=== PATIENT | female | born 1945 | race Caucasian/White ===

== ENCOUNTER 2019-01-10 10:11 | Inpatient (IN) ==
[2019-01-10] MEDS ORDERED: HumuLIN R SUBCUT PRN (12:44)
--- NOTE | 2019-01-10 12:53 | DR.H&P ---
H&P - History & Physical for Day of: H&P Date: 01/10/19 - Chief Complaint Chief Complaint: severe lower extremity swelling, sob, weakness, chills - History of Present Illness History of Present Illness: 73 WF DIRECT ADMIT FORM DR MANN OFFICE WITH CO SEVERE SWELLING TO BILATERAL LOWER EXTREMITIES UP IN TO HER THIGHS AND ABDOMEN. PT HAS NO KNOWN CAD OR CHF. PT HAS HX OF AFIB WITH CONTROLLED RATE, ON CARDIZEM AND ELIQUIS FOR YEARS. PT HAD DM, A1C THIS PAST WEEK ~7. PT STATES APPROX OCTOBER SHE HAS HAD STEADY WEIGHT GAIN, SEVERE EDEMA AND INCREASED SOB. PT WAS SEEN EARLIER IN THE WEEK AND REFUSED ADMISSION AT THAT TIME, HER LASIX WAS INCREASED WITH PT INSTRUCTIONS FOR STRICT I & OS AND ONE DAY FOLLOW UP. PT CO OF CHILLS THIS AM, FEELING MUCH WORSE. PT HAS PMH OF AFIB, DM, HTN AND ANXIETY. PT ADMITTED FOR TREATMENT AND EVALUATION OF ACUTE ILLNESS. - Past Medical History Past Medical History: Anxiety, Arthritis, Diabetes, Hypertension Additional Medical History: AFIB - Social History Does patient currently use any type of tobacco product: No Have you used tobacco products in the last 12 months: No Type of Tobacco Use: None Does any household member use tobacco: No Alcohol Use: None Drug Use: None - Medications Home Medications: UNOBTAINABLE Allergy (Unverified 01/01/13 11:38) - Review of Systems Constitutional: Chills, Weakness Eyes: No Symptoms Reported ENT: No Symptoms Reported Respiratory: Shortness of Breath Cardiovascular: Palpitations, Edema Gastrointestinal: No Symptoms Reported Genitourinary: No Symptoms Reported Musculoskeletal: Leg Pain Skin: Rash Neurological: Weakness Oriented: Normal Eyes: Normal Nose: Normal Throat: Normal Respiratory: RLL Diminished, LLL Diminished Cardiovascular: Tachycardia, Irregular, Edema Auscultation: Bowel Sounds: Normal Palpation: Other (DIFFUSE ABDOMINAL DISTENTION) Tenderness: Normal Skin: Red, Tender, Hot (BILATERAL LOWER EXTREMITIES) Musculoskeletal: Right, Left, Leg, Back:Lumbar Psychiatric: Anxiety Affect: Anxious Speech Pattern: Clear, Appropriate - Assessment/Plan (1) SOB (shortness of breath) Status: Acute Plan: ADMIT ICU,. SERIAL CE AND EKG. CHEST XRAY ON ADMISSION. ADMISSION LABS CBC CMP UA. BP AND LIPID CONTROL, RESUME ELIQUIS. SHEPHERD CATH WITH STRICT I & OS. SUPPLEMENTAL O2. ECHO, BS AND BP CONTROL (2) Atrial fibrillation Status: Acute (3) Swelling of lower limb Status: Acute (4) Hypertension Status: Acute (5) lobsterman current use of anticoagulant Status: Acute (6) Weakness Status: Acute - Allergies Allergies/Adverse Reactions: Allergies Allergy/AdvReac Type Severity Reaction Status Date / Time UNOBTAINABLE Allergy Unverified 01/01/13 11:38
--- NOTE | 2019-01-10 13:29 | RAD ---
History: Atrial fib and CHF Study: Portable AP chest Comparison: None Findings: The heart size is prominent. The lungs are grossly clear. There is minimal vascular congestion. No effusion is suggested. There is no focal lung consolidation. Impression: Minimal vascular congestion Reported By:
[2019-01-10 13:47] LABS: BASOPHILS % (AUTO) 0.5 % (0.2-1.0); EOSINOPHILS % (AUTO) 0.4 % (0.9-2.9); HEMATOCRIT 35.4 % (36.0-47.0); HEMOGLOBIN 11.8 g/dL (12.0-16.0); LYMPHOCYTES # (AUTO) 0.8 X10^3/uL (1.3-2.9); LYMPHOCYTES % (AUTO) 11.5 % (21.0-51.0); MEAN CORPUSCULAR HEMOGLOBIN 30.7 pg (27.0-34.0); MEAN CORPUSCULAR HGB CONC 33.4 g/dL (33.0-35.0); MEAN CORPUSCULAR VOLUME 91.8 fL (80.0-100.0); MEAN PLATELET VOLUME 9.8 fL (7.4-11.0); MONOCYTES # (AUTO) 0.7 x10^3/uL (0.3-0.8); MONOCYTES % (AUTO) 10.6 % (0.0-13.0); NEUTROPHILS # (AUTO) 5.1 x10^3/uL (2.2-4.8); PLATELET COUNT 277 X10^3/uL (150.0-450.0); RED BLOOD COUNT 3.85 X10^6/uL (3.5-5.4); RED CELL DISTRIBUTION WIDTH 14.6 % (11.6-16.5); WHITE BLOOD COUNT 6.6 X10^3/uL (3.6-10.0)
[2019-01-10 14:01] LABS: BLOOD UREA NITROGEN 33 mg/dL (7-18); CALCIUM 9.3 mg/dL (8.5-10.1); CARBON DIOXIDE 28.2 mmol/L (21-32); CHLORIDE 101 mmol/L (98-107); CREATININE 1.76 mg/dL (0.55-1.02); SODIUM 139 mmol/L (136-145); TROPONIN I 0.16 ng/mL (0-1.5); eGFR NON BLACK RACES 30 (>60)
[2019-01-10] MEDS: ELIQUIS PO SCH ×2 (14:02→20:07)
[2019-01-10 14:06] LABS: ALANINE AMINOTRANSFERASE 22 Units/L (12-78); ALBUMIN 3.8 g/dL (3.4-5.0); ALKALINE PHOSPHATASE 114 Units/L (46-116); ASPARTATE AMINO TRANSFERASE 22 Units/L (15-37); CKMB % 2.4 % (<4); CREATINE KINASE 74 Units/L (26-192); CREATINE KINASE MB 1.8 ng/mL (0-4.0); TOTAL PROTEIN 8.2 g/dL (6.4-8.2)
[2019-01-10 14:17] VITALS: BMI 49.0
[2019-01-10] MEDS: K-DUR TAB 20 MEQ PO SCH ×2 (15:15→21:30)
--- NOTE | 2019-01-10 15:28 | VAS ---
HISTORY: Extremity pain, swelling, and edema Study: Bilateral lower extremity Doppler venous ultrasound. TECHNIQUE: Multiple pina scale and color flow Doppler images of the deep venous system were obtained of the right and left lower extremity. FINDINGS: The deep venous system of the right and left lower extremities were evaluated from the level of the common femoral veins through the popliteal veins, bilaterally. Normal color flow and augmentation can be observed. In addition, normal compression is seen throughout the deep venous system. No Vásquez's cyst is seen. IMPRESSION: 1. Negative examination for DVT. Reported By:
[2019-01-10 16:24] LABS: BILIRUBIN,URINE NEGATIVE (NEGATIVE); BLOOD/HEMOGLOBIN,URINE 2+ (NEGATIVE); GLUCOSE, URINE NEGATIVE (NEGATIVE); KETONES,URINE NEGATIVE (NEGATIVE); LEUKOCYTE ESTERASE ,URINE 1+ (NEGATIVE); NITRITES,URINE NEGATIVE (NEGATIVE); PROTEIN,URINE 2+ (NEGATIVE); UROBILINOGEN,URINE NORMAL (NORMAL)
[2019-01-10 16:34] LABS: APPEARANCE,URINE CLEAR (CLEAR); COLOR,URINE YELLOW (YELLOW)
[2019-01-10 16:53] LABS: AMORPHOUS SEDIMENT,UR TRACE /HPF (NEGATIVE); BACTERIA,URINE TRACE /HPF (NEGATIVE); SQUAMOUS EPITHELIAL CELL,UR MANY /HPF (NEGATIVE)
[2019-01-10] MEDS: LASIX IVP SCH ×2 (17:49→20:07)
[2019-01-10 18:00] LABS: APPEARANCE,URINE HAZY (CLEAR); BILIRUBIN,URINE NEGATIVE (NEGATIVE); BLOOD/HEMOGLOBIN,URINE 4+ (NEGATIVE); COLOR,URINE YELLOW (YELLOW); GLUCOSE, URINE NEGATIVE (NEGATIVE); KETONES,URINE NEGATIVE (NEGATIVE); LEUKOCYTE ESTERASE ,URINE 1+ (NEGATIVE); NITRITES,URINE NEGATIVE (NEGATIVE); PROTEIN,URINE 1+ (NEGATIVE); UROBILINOGEN,URINE NORMAL (NORMAL)
[2019-01-10] MEDS ORDERED: XANAX PO ONE (18:09)
[2019-01-10 18:10] LABS: AMORPHOUS SEDIMENT,UR 1+ /HPF (NEGATIVE); BACTERIA,URINE TRACE /HPF (NEGATIVE); MUCUS,URINE RARE /HPF (NEGATIVE); SQUAMOUS EPITHELIAL CELL,UR MODERATE /HPF (NEGATIVE)
[2019-01-10] MEDS ORDERED: TYLENOL 500 MG TAB EXTRA STRENGTH PO PRN (18:10)
[2019-01-10] MEDS ORDERED: NS 1/2 1000 ML IV 1,000 ML IV ONE (18:14)
[2019-01-10] MEDS ORDERED: TYLENOL 500 MG TAB EXTRA STRENGTH PO ONE (18:15)
[2019-01-10] MEDS: NS 1/2 1000 ML IV 1,000 ML IV SCH (18:25)
[2019-01-10 19:14] LABS: CKMB % 2.5 % (<4); CREATINE KINASE MB 1.7 ng/mL (0-4.0); TROPONIN I 0.18 ng/mL (0-1.5)
[2019-01-10] MEDS: SNACK - Diabetic Appropriate PO SCH (20:07)
[2019-01-10] MEDS: CARDIZEM CD 180 MG PO SCH (20:07)
[2019-01-10] MEDS: XANAX PO PRN (20:08)
[2019-01-10] MEDS ORDERED: PATIENT'S HOME MEDICATION PO SCH (21:00)
[2019-01-10] MEDS ORDERED: GLUCOPHAGE XR PO SCH (21:00)
[2019-01-10] MEDS ORDERED: LANOXIN INJ ONE (21:03)
[2019-01-10] MEDS ORDERED: ZANAFLEX ONE (21:04)
[2019-01-10] MEDS: LANOXIN INJ IVP SCH (21:28)
[2019-01-10] MEDS: ZANAFLEX PO PRN (21:28)
[2019-01-11 01:38] LABS: CKMB % 2.8 % (<4); CREATINE KINASE MB 1.6 ng/mL (0-4.0); TROPONIN I 0.18 ng/mL (0-1.5)
[2019-01-11] MEDS: LANOXIN INJ IVP SCH (02:40)
[2019-01-11] MEDS ORDERED: GLUTOSE 15 GEL ORAL PO ONE (05:25)
[2019-01-11] MEDS: MICRO K EXTEN CAP 10 MEQ PO SCH ×3 (05:34→21:00)
[2019-01-11 06:39] LABS: BASOPHILS % (AUTO) 0.7 % (0.2-1.0); EOSINOPHILS # (AUTO) 0.1 x10^3/uL (0.0-0.2); EOSINOPHILS % (AUTO) 1.9 % (0.9-2.9); HEMATOCRIT 33.9 % (36.0-47.0); HEMOGLOBIN 11.1 g/dL (12.0-16.0); LYMPHOCYTES % (AUTO) 17.7 % (21.0-51.0); MEAN CORPUSCULAR HEMOGLOBIN 30.3 pg (27.0-34.0); MEAN CORPUSCULAR HGB CONC 32.8 g/dL (33.0-35.0); MEAN CORPUSCULAR VOLUME 92.2 fL (80.0-100.0); MEAN PLATELET VOLUME 10.1 fL (7.4-11.0); MONOCYTES # (AUTO) 0.7 x10^3/uL (0.3-0.8); MONOCYTES % (AUTO) 12.2 % (0.0-13.0); NEUTROPHILS # (AUTO) 3.9 x10^3/uL (2.2-4.8); NEUTROPHILS % (AUTO) 67.5 % (42.0-75.0); PLATELET COUNT 239 X10^3/uL (150.0-450.0); RED BLOOD COUNT 3.68 X10^6/uL (3.5-5.4); RED CELL DISTRIBUTION WIDTH 14.3 % (11.6-16.5); WHITE BLOOD COUNT 5.8 X10^3/uL (3.6-10.0)
[2019-01-11 06:57] LABS: ALANINE AMINOTRANSFERASE 20 Units/L (12-78); ALBUMIN 3.3 g/dL (3.4-5.0); ALKALINE PHOSPHATASE 95 Units/L (46-116); ASPARTATE AMINO TRANSFERASE 23 Units/L (15-37); BLOOD UREA NITROGEN 29 mg/dL (7-18); CALCIUM 8.8 mg/dL (8.5-10.1); CARBON DIOXIDE 30.2 mmol/L (21-32); CHLORIDE 103 mmol/L (98-107); COR CA(FOR HYPOALB) 9.4 mg/dL (8.5-10.1); CREATININE 1.55 mg/dL (0.55-1.02); SODIUM 140 mmol/L (136-145); TOTAL PROTEIN 7.4 g/dL (6.4-8.2); eGFR NON BLACK RACES 35 (>60)
[2019-01-11] MEDS: ELIQUIS PO SCH ×2 (08:10→20:56)
[2019-01-11] MEDS: LASIX IVP SCH ×2 (08:10→20:56)
[2019-01-11] MEDS: ZANAFLEX PO PRN ×2 (08:11→20:56)
[2019-01-11] MEDS: PEPCID TAB 20 MG PO SCH ×2 (08:41→20:56)
[2019-01-11] MEDS ORDERED: LASIX PO SCH (09:00)
[2019-01-11] MEDS ORDERED: CARDIZEM CD 180 MG PO SCH (09:00)
[2019-01-11 10:18] LABS: CKMB % 3.1 % (<4); CREATINE KINASE MB 1.5 ng/mL (0-4.0); TROPONIN I 0.18 ng/mL (0-1.5)
[2019-01-11] MEDS: NS 1/2 1000 ML IV 1,000 ML IV SCH (18:30)
[2019-01-11] MEDS: SNACK - Diabetic Appropriate PO SCH (20:55)
[2019-01-11] MEDS: CARDIZEM CD 180 MG PO SCH (20:55)
[2019-01-11] MEDS: XANAX PO PRN (23:10)
[2019-01-12] MEDS: ZANAFLEX PO PRN ×3 (05:32→21:42)
[2019-01-12] MEDS: MICRO K EXTEN CAP 10 MEQ PO SCH ×3 (05:32→21:42)
[2019-01-12 06:07] LABS: BASOPHILS % (AUTO) 0.7 % (0.2-1.0); EOSINOPHILS # (AUTO) 0.1 x10^3/uL (0.0-0.2); EOSINOPHILS % (AUTO) 1.6 % (0.9-2.9); HEMATOCRIT 34.7 % (36.0-47.0); HEMOGLOBIN 11.4 g/dL (12.0-16.0); LYMPHOCYTES # (AUTO) 0.9 X10^3/uL (1.3-2.9); LYMPHOCYTES % (AUTO) 14.3 % (21.0-51.0); MEAN CORPUSCULAR HEMOGLOBIN 30.3 pg (27.0-34.0); MEAN CORPUSCULAR HGB CONC 32.9 g/dL (33.0-35.0); MEAN CORPUSCULAR VOLUME 92.1 fL (80.0-100.0); MEAN PLATELET VOLUME 9.9 fL (7.4-11.0); MONOCYTES # (AUTO) 0.6 x10^3/uL (0.3-0.8); MONOCYTES % (AUTO) 10.4 % (0.0-13.0); NEUTROPHILS # (AUTO) 4.4 x10^3/uL (2.2-4.8); PLATELET COUNT 222 X10^3/uL (150.0-450.0); RED BLOOD COUNT 3.77 X10^6/uL (3.5-5.4); RED CELL DISTRIBUTION WIDTH 14.9 % (11.6-16.5); WHITE BLOOD COUNT 6.1 X10^3/uL (3.6-10.0)
[2019-01-12 06:28] LABS: ALBUMIN 3.3 g/dL (3.4-5.0); CALCIUM 8.9 mg/dL (8.5-10.1); CARBON DIOXIDE 30.5 mmol/L (21-32); COR CA(FOR HYPOALB) 9.5 mg/dL (8.5-10.1); CREATININE 1.47 mg/dL (0.55-1.02); TOTAL PROTEIN 7.4 g/dL (6.4-8.2)
[2019-01-12] MEDS: ELIQUIS PO SCH ×2 (08:33→20:13)
[2019-01-12] MEDS: LASIX IVP SCH ×3 (08:34→20:13)
[2019-01-12] MEDS: PEPCID TAB 20 MG PO SCH ×2 (08:39→20:13)
[2019-01-12] MEDS: XANAX PO PRN ×2 (09:25→21:42)
[2019-01-12] MEDS: CARDIZEM CD 180 MG PO SCH ×2 (09:26→20:12)
--- NOTE | 2019-01-12 11:10 | RAD ---
HISTORY: Central line placement Study: Chest AP portable Comparison: 01/10/2019 Findings: There is a left-sided central line with its tip in the superior vena cava. No pneumothorax is identified. The heart is enlarged. No congestive heart failure is noted. No acute alveolar infiltrates or pleural effusions are identified. The bony thorax is unremarkable. IMPRESSION: Left CVP line tip superior vena cava, no pneumothorax Moderate cardiomegaly without congestive heart failure No infiltrates Reported By:
[2019-01-12] MEDS: NS 1/2 1000 ML IV 1,000 ML IV SCH (17:23)
[2019-01-12] MEDS: SNACK - Diabetic Appropriate PO SCH (20:12)
[2019-01-13] MEDS: MICRO K EXTEN CAP 10 MEQ PO SCH ×3 (05:44→21:21)
[2019-01-13 06:18] LABS: BASOPHILS % (AUTO) 0.6 % (0.2-1.0); EOSINOPHILS # (AUTO) 0.1 x10^3/uL (0.0-0.2); EOSINOPHILS % (AUTO) 1.9 % (0.9-2.9); HEMATOCRIT 34.4 % (36.0-47.0); HEMOGLOBIN 11.4 g/dL (12.0-16.0); LYMPHOCYTES # (AUTO) 0.8 X10^3/uL (1.3-2.9); LYMPHOCYTES % (AUTO) 12.5 % (21.0-51.0); MEAN CORPUSCULAR HEMOGLOBIN 30.6 pg (27.0-34.0); MEAN CORPUSCULAR HGB CONC 33.1 g/dL (33.0-35.0); MEAN CORPUSCULAR VOLUME 92.4 fL (80.0-100.0); MEAN PLATELET VOLUME 9.9 fL (7.4-11.0); MONOCYTES # (AUTO) 0.6 x10^3/uL (0.3-0.8); NEUTROPHILS # (AUTO) 4.7 x10^3/uL (2.2-4.8); PLATELET COUNT 236 X10^3/uL (150.0-450.0); RED BLOOD COUNT 3.73 X10^6/uL (3.5-5.4); RED CELL DISTRIBUTION WIDTH 14.6 % (11.6-16.5); WHITE BLOOD COUNT 6.2 X10^3/uL (3.6-10.0)
[2019-01-13 06:39] LABS: ALANINE AMINOTRANSFERASE 20 Units/L (12-78); ALBUMIN 3.4 g/dL (3.4-5.0); ALKALINE PHOSPHATASE 105 Units/L (46-116); ASPARTATE AMINO TRANSFERASE 18 Units/L (15-37); BLOOD UREA NITROGEN 24 mg/dL (7-18); CALCIUM 8.8 mg/dL (8.5-10.1); CARBON DIOXIDE 30.2 mmol/L (21-32); CHLORIDE 103 mmol/L (98-107); COR NA(FOR HYPERGLY) 142 mmol/L (136-145); CREATININE 1.33 mg/dL (0.55-1.02); SODIUM 140 mmol/L (136-145); TOTAL PROTEIN 7.5 g/dL (6.4-8.2); eGFR NON BLACK RACES 41 (>60)
[2019-01-13] MEDS: LASIX IVP SCH ×2 (08:13→20:43)
[2019-01-13] MEDS: XANAX PO PRN ×2 (08:13→23:00)
[2019-01-13] MEDS: ELIQUIS PO SCH ×2 (08:13→20:43)
[2019-01-13] MEDS: ZANAFLEX PO PRN ×2 (08:13→20:44)
[2019-01-13] MEDS: PEPCID TAB 20 MG PO SCH ×2 (08:21→20:44)
--- NOTE | 2019-01-13 08:38 | PCM.PROG ---
Progress Note - Progress Note for Day of Date of Exam: 01/11/19 - Subjective Subjective: 73 WF DIRECT ADMIT ON 01/10 WITH DIFFUSE ANASARCA, LOWER EXTREMITY EDEMA, SOB AND AFIB WITH HYPERTENSIVE URGENCY. PT HAS PMH OF AFIB AND DENIES ANY KNOWN CHF OR CAD. PT CURRENTLY ON IV LASIX WITH STRICT I & OS, SHEPHERD CATH CARE. PT HAS HAD SERIAL CE WITH TROPONIN 0.18 THIS AM. ADD DIGOXIN IV, CONTINUOUS CARDIAC AND BP MONITORING. DISCUSSED FUTURE HEART CATH WITH PT AND FAMILY. PT CO RIGHT THIGH AND LOWER BACK PAIN, EASED WITH PO TIZANIDINE. - Past Medical Family Social History Past Med/Fam/Surg Hx: No changes since H&P Allergies: Allergies No Known Drug Allergies Allergy (Verified 01/10/19 13:28) - Review of Systems ROS: No change since H&P - Vital Signs and I&O's Vital Signs: Temperature 98.0 F Pulse Rate 87 Respiratory Rate 27 Blood Pressure 175/73 O2 Sat by Pulse Oximetry 96 Intake and Output: Intake & Output 01/10/19 01/11/19 01/12/19 01/13/19 11:59 11:59 11:59 11:59 Intake Total 838 / 838 560 / 560 1320 / 1320 Output Total 1075 / 1075 2400 / 2400 2201 / 2201 Balance -237 / -237 -1840 / -1840 -881 / -881 - Physical Exam Oriented: Normal Eyes: Normal Nose: Normal Throat: Normal Respiratory: Diminished Cardiovascular: Tachycardia, Irregular, Edema Auscultation: Bowel Sounds: Normal Tenderness: Normal Skin: Red, Tender, Hot (BILATERAL LOWER EXTREMITIES) Musculoskeletal: Right, Left, Leg, Back:Lumbar Psychiatric: Anxiety Affect: Anxious Speech Pattern: Clear, Appropriate - Laboratory and Diagnostics Result Diagrams: 01/13/19 05:50 01/13/19 05:50 Labs: 01/10/19 17:45 Urine,Catheterized Urine Culture - Final Laboratory WBC 6.2 X10^3/uL (3.6-10.0) 01/13/19 05:50 RBC 3.73 X10^6/uL (3.5-5.4) 01/13/19 05:50 Hgb 11.4 g/dL (12.0-16.0) L 01/13/19 05:50 Hct 34.4 % (36.0-47.0) L 01/13/19 05:50 MCV 92.4 fL (80.0-100.0) 01/13/19 05:50 MCH 30.6 pg (27.0-34.0) 01/13/19 05:50 MCHC 33.1 g/dL (33.0-35.0) 01/13/19 05:50 RDW 14.6 % (11.6-16.5) 01/13/19 05:50 Plt Count 236 X10^3/uL (150.0-450.0) 01/13/19 05:50 MPV 9.9 fL (7.4-11.0) 01/13/19 05:50 Neut % (Auto) 75.0 % (42.0-75.0) 01/13/19 05:50 Lymph % (Auto) 12.5 % (21.0-51.0) L 01/13/19 05:50 [place] % (Auto) 10.0 % (0.0-13.0) 01/13/19 05:50 Eos % (Auto) 1.9 % (0.9-2.9) 01/13/19 05:50 Baso % (Auto) 0.6 % (0.2-1.0) 01/13/19 05:50 Neut # (Auto) 4.7 x10^3/uL (2.2-4.8) 01/13/19 05:50 Lymph # (Auto) 0.8 X10^3/uL (1.3-2.9) L 01/13/19 05:50 [place] # (Auto) 0.6 x10^3/uL (0.3-0.8) 01/13/19 05:50 Eos # (Auto) 0.1 x10^3/uL (0.0-0.2) 01/13/19 05:50 Baso # (Auto) 0.0 X10^3/uL (0.0-0.1) 01/13/19 05:50 Absolute Nucleated RBC 0.0 /100WBC 01/13/19 05:50 INR Target Range - 01/13/19 05:57 INR 1.55 (0.8-1.3) H 01/13/19 05:57 APTT 41.3 SECONDS (22.9-36.5) H 01/13/19 05:57 PTT Comment - 01/13/19 05:57 Sodium 140 mmol/L (136-145) 01/13/19 05:50 Corrected Sodium 142 mmol/L (136-145) 01/13/19 05:50 Potassium 3.9 mmol/L (3.5-5.1) 01/13/19 05:50 Chloride 103 mmol/L (98-107) 01/13/19 05:50 Carbon Dioxide 30.2 mmol/L (21-32) 01/13/19 05:50 BUN 24 mg/dL (7-18) H 01/13/19 05:50 Creatinine 1.33 mg/dL (0.55-1.02) H 01/13/19 05:50 Est GFR (MDRD) Af Amer 50 (>60) L 01/13/19 05:50 Est GFR (MDRD) Non-Af 41 (>60) L 01/13/19 05:50 Glucose 171 mg/dL (65-99) H 01/13/19 05:50 POC Glucose (mg/dL) 159 mg/dL (65-99) H 01/13/19 05:29 Calcium 8.8 mg/dL (8.5-10.1) 01/13/19 05:50 Corrected Calcium TNP 01/13/19 05:50 Total Bilirubin 0.60 mg/dL (0.2-1.0) 01/13/19 05:50 AST 18 Units/L (15-37) 01/13/19 05:50 ALT 20 Units/L (12-78) 01/13/19 05:50 Alkaline Phosphatase 105 Units/L (46-116) 01/13/19 05:50 Creatine Kinase 49 Units/L (26-192) 01/11/19 09:45 CK-MB (CK-2) 1.5 ng/mL (0-4.0) 01/11/19 09:45 CK/CKMB % Calc 3.1 % (<4) 01/11/19 09:45 Troponin I 0.18 ng/mL (0-1.5) 01/11/19 09:45 B-Natriuretic Peptide 150 pg/mL (0-79) H 01/10/19 13:24 Total Protein 7.5 g/dL (6.4-8.2) 01/13/19 05:50 Albumin 3.4 g/dL (3.4-5.0) 01/13/19 05:50 Globulin 4.1 g/dL (2.5-4.5) 01/13/19 05:50 Albumin/Globulin Ratio 0.8 Ratio (1.1-2.1) L 01/13/19 05:50 Specimen Type Catherized urine 01/10/19 17:45 Urine Color Yellow (YELLOW) 01/10/19 17:45 Urine Appearance Hazy (CLEAR) 01/10/19 17:45 Urine pH 5.0 (5.0 - 8.0) 01/10/19 17:45 Ur Specific [place] 1.015 (1.000-1.030) 01/10/19 17:45 Urine Protein 1+ (NEGATIVE) 01/10/19 17:45 Urine Glucose (UA) Negative (NEGATIVE) 01/10/19 17:45 Urine Ketones Negative (NEGATIVE) 01/10/19 17:45 Urine Occult Blood 4+ (NEGATIVE) 01/10/19 17:45 Urine Nitrite Negative (NEGATIVE) 01/10/19 17:45 Urine Bilirubin Negative (NEGATIVE) 01/10/19 17:45 Urine Urobilinogen Normal (NORMAL) 01/10/19 17:45 Ur Leukocyte Esterase 1+ (NEGATIVE) 01/10/19 17:45 Urine RBC 5-10 /HPF (NONE SEEN) 01/10/19 17:45 Urine WBC 5-10 /HPF (NONE SEEN) 01/10/19 17:45 Ur Squamous Epith Cells Moderate /HPF (NEGATIVE) 01/10/19 17:45 Amorphous Sediment 1+ /HPF (NEGATIVE) 01/10/19 17:45 Urine Bacteria Trace /HPF (NEGATIVE) 01/10/19 17:45 Urine Mucus Rare /HPF (NEGATIVE) 01/10/19 17:45 Ur Culture Indicated? Yes/culture set up 01/10/19 17:45 Influenza Type A (PCR) Negative (NEGATIVE) 01/10/19 15:00 Influenza Type B (PCR) Negative (NEGATIVE) 01/10/19 15:00 - Plan (1) SOB (shortness of breath) Status: Acute Plan: ICU,. SERIAL CE AND EKG. CHEST XRAY ON ADMISSION AND Q AM. ADMISSION LABS CBC CMP UA. BP AND LIPID CONTROL, RESUME ELIQUIS. SHEPHERD CATH WITH STRICT I & OS. SUPPLEMENTAL O2. 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
--- NOTE | 2019-01-13 08:41 | PCM.PROG ---
Progress Note - Progress Note for Day of Date of Exam: 01/12/19 - Subjective Subjective: 73 WF DIRECT ADMIT ON 01/10 WITH DIFFUSE ANASARCA, LOWER EXTREMITY EDEMA, SOB AND AFIB WITH HYPERTENSIVE URGENCY. PT HAS PMH OF AFIB AND DENIES ANY KNOWN CHF OR CAD. BP 140/88 THIS AM. PT DENIES ANY CHEST PAIN, CONTINUES WITH DIFFUSE EDEMA AND SOB WORSE ON EXERTION OR SPEAKING.PT CURRENTLY ON IV LASIX WITH STRICT I & OS, SHEPHERD CATH CARE. PT HAS HAD SERIAL CE WITH EKGS ON ADMISSION. RECEIVED DIGOXIN IV, CONTINUOUS CARDIAC AND BP MONITORING. BUN 27 CREAT 1.47 THIS AM. DISCUSSED FUTURE HEART CATH WITH PT AND FAMILY. PT CO RIGHT THIGH AND LOWER BACK PAIN, EASED WITH PO TIZANIDINE. - Past Medical Family Social History Past Med/Fam/Surg Hx: No changes since H&P Allergies: Allergies No Known Drug Allergies Allergy (Verified 01/10/19 13:28) - Review of Systems ROS: No change since H&P - Vital Signs and I&O's Vital Signs: Temperature 98.0 F Pulse Rate 87 Respiratory Rate 27 Blood Pressure 175/73 O2 Sat by Pulse Oximetry 96 Intake and Output: Intake & Output 01/10/19 01/11/19 01/12/19 01/13/19 11:59 11:59 11:59 11:59 Intake Total 838 / 838 560 / 560 1320 / 1320 Output Total 1075 / 1075 2400 / 2400 2201 / 2201 Balance -237 / -237 -1840 / -1840 -881 / -881 - Physical Exam Oriented: Normal Eyes: Normal Nose: Normal Throat: Normal Respiratory: Diminished Cardiovascular: Tachycardia, Irregular, Edema Auscultation: Bowel Sounds: Normal Tenderness: Normal Skin: Red, Tender, Hot (BILATERAL LOWER EXTREMITIES) Musculoskeletal: Right, Left, Leg, Back:Lumbar Psychiatric: Anxiety Affect: Anxious Speech Pattern: Clear, Appropriate - Laboratory and Diagnostics Result Diagrams: 01/13/19 05:50 01/13/19 05:50 Labs: 01/10/19 17:45 Urine,Catheterized Urine Culture - Final Laboratory WBC 6.2 X10^3/uL (3.6-10.0) 01/13/19 05:50 RBC 3.73 X10^6/uL (3.5-5.4) 01/13/19 05:50 Hgb 11.4 g/dL (12.0-16.0) L 01/13/19 05:50 Hct 34.4 % (36.0-47.0) L 01/13/19 05:50 MCV 92.4 fL (80.0-100.0) 01/13/19 05:50 MCH 30.6 pg (27.0-34.0) 01/13/19 05:50 MCHC 33.1 g/dL (33.0-35.0) 01/13/19 05:50 RDW 14.6 % (11.6-16.5) 01/13/19 05:50 Plt Count 236 X10^3/uL (150.0-450.0) 01/13/19 05:50 MPV 9.9 fL (7.4-11.0) 01/13/19 05:50 Neut % (Auto) 75.0 % (42.0-75.0) 01/13/19 05:50 Lymph % (Auto) 12.5 % (21.0-51.0) L 01/13/19 05:50 [place] % (Auto) 10.0 % (0.0-13.0) 01/13/19 05:50 Eos % (Auto) 1.9 % (0.9-2.9) 01/13/19 05:50 Baso % (Auto) 0.6 % (0.2-1.0) 01/13/19 05:50 Neut # (Auto) 4.7 x10^3/uL (2.2-4.8) 01/13/19 05:50 Lymph # (Auto) 0.8 X10^3/uL (1.3-2.9) L 01/13/19 05:50 [place] # (Auto) 0.6 x10^3/uL (0.3-0.8) 01/13/19 05:50 Eos # (Auto) 0.1 x10^3/uL (0.0-0.2) 01/13/19 05:50 Baso # (Auto) 0.0 X10^3/uL (0.0-0.1) 01/13/19 05:50 Absolute Nucleated RBC 0.0 /100WBC 01/13/19 05:50 INR Target Range - 01/13/19 05:57 INR 1.55 (0.8-1.3) H 01/13/19 05:57 APTT 41.3 SECONDS (22.9-36.5) H 01/13/19 05:57 PTT Comment - 01/13/19 05:57 Sodium 140 mmol/L (136-145) 01/13/19 05:50 Corrected Sodium 142 mmol/L (136-145) 01/13/19 05:50 Potassium 3.9 mmol/L (3.5-5.1) 01/13/19 05:50 Chloride 103 mmol/L (98-107) 01/13/19 05:50 Carbon Dioxide 30.2 mmol/L (21-32) 01/13/19 05:50 BUN 24 mg/dL (7-18) H 01/13/19 05:50 Creatinine 1.33 mg/dL (0.55-1.02) H 01/13/19 05:50 Est GFR (MDRD) Af Amer 50 (>60) L 01/13/19 05:50 Est GFR (MDRD) Non-Af 41 (>60) L 01/13/19 05:50 Glucose 171 mg/dL (65-99) H 01/13/19 05:50 POC Glucose (mg/dL) 159 mg/dL (65-99) H 01/13/19 05:29 Calcium 8.8 mg/dL (8.5-10.1) 01/13/19 05:50 Corrected Calcium TNP 01/13/19 05:50 Total Bilirubin 0.60 mg/dL (0.2-1.0) 01/13/19 05:50 AST 18 Units/L (15-37) 01/13/19 05:50 ALT 20 Units/L (12-78) 01/13/19 05:50 Alkaline Phosphatase 105 Units/L (46-116) 01/13/19 05:50 Creatine Kinase 49 Units/L (26-192) 01/11/19 09:45 CK-MB (CK-2) 1.5 ng/mL (0-4.0) 01/11/19 09:45 CK/CKMB % Calc 3.1 % (<4) 01/11/19 09:45 Troponin I 0.18 ng/mL (0-1.5) 01/11/19 09:45 B-Natriuretic Peptide 150 pg/mL (0-79) H 01/10/19 13:24 Total Protein 7.5 g/dL (6.4-8.2) 01/13/19 05:50 Albumin 3.4 g/dL (3.4-5.0) 01/13/19 05:50 Globulin 4.1 g/dL (2.5-4.5) 01/13/19 05:50 Albumin/Globulin Ratio 0.8 Ratio (1.1-2.1) L 01/13/19 05:50 Specimen Type Catherized urine 01/10/19 17:45 Urine Color Yellow (YELLOW) 01/10/19 17:45 Urine Appearance Hazy (CLEAR) 01/10/19 17:45 Urine pH 5.0 (5.0 - 8.0) 01/10/19 17:45 Ur Specific [place] 1.015 (1.000-1.030) 01/10/19 17:45 Urine Protein 1+ (NEGATIVE) 01/10/19 17:45 Urine Glucose (UA) Negative (NEGATIVE) 01/10/19 17:45 Urine Ketones Negative (NEGATIVE) 01/10/19 17:45 Urine Occult Blood 4+ (NEGATIVE) 01/10/19 17:45 Urine Nitrite Negative (NEGATIVE) 01/10/19 17:45 Urine Bilirubin Negative (NEGATIVE) 01/10/19 17:45 Urine Urobilinogen Normal (NORMAL) 01/10/19 17:45 Ur Leukocyte Esterase 1+ (NEGATIVE) 01/10/19 17:45 Urine RBC 5-10 /HPF (NONE SEEN) 01/10/19 17:45 Urine WBC 5-10 /HPF (NONE SEEN) 01/10/19 17:45 Ur Squamous Epith Cells Moderate /HPF (NEGATIVE) 01/10/19 17:45 Amorphous Sediment 1+ /HPF (NEGATIVE) 01/10/19 17:45 Urine Bacteria Trace /HPF (NEGATIVE) 01/10/19 17:45 Urine Mucus Rare /HPF (NEGATIVE) 01/10/19 17:45 Ur Culture Indicated? Yes/culture set up 01/10/19 17:45 Influenza Type A (PCR) Negative (NEGATIVE) 01/10/19 15:00 Influenza Type B (PCR) Negative (NEGATIVE) 01/10/19 15:00 - Plan (1) SOB (shortness of breath) Status: Acute Plan: ICU,. SERIAL CE AND EKG. CHEST XRAY ON ADMISSION AND Q AM. ADMISSION LABS CBC CMP UA. BP AND LIPID CONTROL, RESUME ELIQUIS. SHEPHERD CATH WITH STRICT I & OS. SUPPLEMENTAL O2. ECHO REVIEWED WITH PT AND FAMILY, BS AND BP CONTROL (2) Atrial fibrillation Status: Acute (3) Swelling of lower limb Status: Acute (4) Hypertension Status: Acute (5) senior living current use of anticoagulant Status: Acute (6) Weakness Status: Acute
[2019-01-13] MEDS ORDERED: NS 1/2 1000 ML IV 0 ML IV ONE (13:28)
--- NOTE | 2019-01-13 17:27 | PCM.PROG ---
Progress Note - Progress Note for Day of Date of Exam: 01/13/19 - Subjective Subjective: 73 WF DIRECT ADMIT ON 01/10 WITH DIFFUSE ANASARCA, LOWER EXTREMITY EDEMA, SOB AND AFIB WITH HYPERTENSIVE URGENCY. PT HAS PMH OF AFIB AND DENIES ANY KNOWN CHF OR CAD. PT DENIES ANY CHEST PAIN, CONTINUES WITH DIFFUSE EDEMA AND SOB WORSE ON EXERTION OR SPEAKING.PT CURRENTLY ON IV LASIX WITH STRICT I & OS, SHEPHERD CATH CARE. PT HAS HAD SERIAL CE WITH EKGS ON ADMISSION. RECEIVED DIGOXIN IV, CONTINUOUS CARDIAC AND BP MONITORING.BP 182/74, PULSE 92. ADD LOPRESSOR 12.5 BID. DISCUSSED FUTURE HEART CATH WITH PT AND FAMILY. PT CO RIGHT THIGH AND LOWER BACK PAIN, EASED WITH PO TIZANIDINE. - Past Medical Family Social History Past Med/Fam/Surg Hx: No changes since H&P Allergies: Allergies No Known Drug Allergies Allergy (Verified 01/10/19 13:28) - Review of Systems ROS: No change since H&P - Vital Signs and I&O's Vital Signs: Temperature 97.2 F Pulse Rate 92 Respiratory Rate 28 Blood Pressure 182/74 O2 Sat by Pulse Oximetry 97 Intake and Output: Intake & Output 01/11/19 01/12/19 01/13/19 01/14/19 11:59 11:59 11:59 11:59 Intake Total 838 / 838 560 / 560 1320 / 1320 810 / 810 Output Total 1075 / 1075 2400 / 2400 2201 / 2201 750 / 750 Balance -237 / -237 -1840 / -1840 -881 / -881 60 / 60 - Physical Exam Oriented: Normal Eyes: Normal Nose: Normal Throat: Normal Respiratory: Diminished Cardiovascular: Tachycardia, Irregular, Edema Auscultation: Bowel Sounds: Normal Tenderness: Normal Skin: Red, Tender, Hot (BILATERAL LOWER EXTREMITIES) Musculoskeletal: Right, Left, Leg, Back:Lumbar Psychiatric: Anxiety Affect: Anxious Speech Pattern: Clear, Appropriate - Laboratory and Diagnostics Result Diagrams: 01/13/19 05:50 01/13/19 05:50 Labs: 01/10/19 17:45 Urine,Catheterized Urine Culture - Final Laboratory WBC 6.2 X10^3/uL (3.6-10.0) 01/13/19 05:50 RBC 3.73 X10^6/uL (3.5-5.4) 01/13/19 05:50 Hgb 11.4 g/dL (12.0-16.0) L 01/13/19 05:50 Hct 34.4 % (36.0-47.0) L 01/13/19 05:50 MCV 92.4 fL (80.0-100.0) 01/13/19 05:50 MCH 30.6 pg (27.0-34.0) 01/13/19 05:50 MCHC 33.1 g/dL (33.0-35.0) 01/13/19 05:50 RDW 14.6 % (11.6-16.5) 01/13/19 05:50 Plt Count 236 X10^3/uL (150.0-450.0) 01/13/19 05:50 MPV 9.9 fL (7.4-11.0) 01/13/19 05:50 Neut % (Auto) 75.0 % (42.0-75.0) 01/13/19 05:50 Lymph % (Auto) 12.5 % (21.0-51.0) L 01/13/19 05:50 [place] % (Auto) 10.0 % (0.0-13.0) 01/13/19 05:50 Eos % (Auto) 1.9 % (0.9-2.9) 01/13/19 05:50 Baso % (Auto) 0.6 % (0.2-1.0) 01/13/19 05:50 Neut # (Auto) 4.7 x10^3/uL (2.2-4.8) 01/13/19 05:50 Lymph # (Auto) 0.8 X10^3/uL (1.3-2.9) L 01/13/19 05:50 [place] # (Auto) 0.6 x10^3/uL (0.3-0.8) 01/13/19 05:50 Eos # (Auto) 0.1 x10^3/uL (0.0-0.2) 01/13/19 05:50 Baso # (Auto) 0.0 X10^3/uL (0.0-0.1) 01/13/19 05:50 Absolute Nucleated RBC 0.0 /100WBC 01/13/19 05:50 INR Target Range - 01/13/19 05:57 INR 1.55 (0.8-1.3) H 01/13/19 05:57 APTT 41.3 SECONDS (22.9-36.5) H 01/13/19 05:57 PTT Comment - 01/13/19 05:57 Sodium 140 mmol/L (136-145) 01/13/19 05:50 Corrected Sodium 142 mmol/L (136-145) 01/13/19 05:50 Potassium 3.9 mmol/L (3.5-5.1) 01/13/19 05:50 Chloride 103 mmol/L (98-107) 01/13/19 05:50 Carbon Dioxide 30.2 mmol/L (21-32) 01/13/19 05:50 BUN 24 mg/dL (7-18) H 01/13/19 05:50 Creatinine 1.33 mg/dL (0.55-1.02) H 01/13/19 05:50 Est GFR (MDRD) Af Amer 50 (>60) L 01/13/19 05:50 Est GFR (MDRD) Non-Af 41 (>60) L 01/13/19 05:50 Glucose 171 mg/dL (65-99) H 01/13/19 05:50 POC Glucose (mg/dL) 196 mg/dL (65-99) H 01/13/19 15:35 Calcium 8.8 mg/dL (8.5-10.1) 01/13/19 05:50 Corrected Calcium TNP 01/13/19 05:50 Total Bilirubin 0.60 mg/dL (0.2-1.0) 01/13/19 05:50 AST 18 Units/L (15-37) 01/13/19 05:50 ALT 20 Units/L (12-78) 01/13/19 05:50 Alkaline Phosphatase 105 Units/L (46-116) 01/13/19 05:50 Creatine Kinase 49 Units/L (26-192) 01/11/19 09:45 CK-MB (CK-2) 1.5 ng/mL (0-4.0) 01/11/19 09:45 CK/CKMB % Calc 3.1 % (<4) 01/11/19 09:45 Troponin I 0.18 ng/mL (0-1.5) 01/11/19 09:45 B-Natriuretic Peptide 150 pg/mL (0-79) H 01/10/19 13:24 Total Protein 7.5 g/dL (6.4-8.2) 01/13/19 05:50 Albumin 3.4 g/dL (3.4-5.0) 01/13/19 05:50 Globulin 4.1 g/dL (2.5-4.5) 01/13/19 05:50 Albumin/Globulin Ratio 0.8 Ratio (1.1-2.1) L 01/13/19 05:50 Specimen Type Catherized urine 01/10/19 17:45 Urine Color Yellow (YELLOW) 01/10/19 17:45 Urine Appearance Hazy (CLEAR) 01/10/19 17:45 Urine pH 5.0 (5.0 - 8.0) 01/10/19 17:45 Ur Specific [place] 1.015 (1.000-1.030) 01/10/19 17:45 Urine Protein 1+ (NEGATIVE) 01/10/19 17:45 Urine Glucose (UA) Negative (NEGATIVE) 01/10/19 17:45 Urine Ketones Negative (NEGATIVE) 01/10/19 17:45 Urine Occult Blood 4+ (NEGATIVE) 01/10/19 17:45 Urine Nitrite Negative (NEGATIVE) 01/10/19 17:45 Urine Bilirubin Negative (NEGATIVE) 01/10/19 17:45 Urine Urobilinogen Normal (NORMAL) 01/10/19 17:45 Ur Leukocyte Esterase 1+ (NEGATIVE) 01/10/19 17:45 Urine RBC 5-10 /HPF (NONE SEEN) 01/10/19 17:45 Urine WBC 5-10 /HPF (NONE SEEN) 01/10/19 17:45 Ur Squamous Epith Cells Moderate /HPF (NEGATIVE) 01/10/19 17:45 Amorphous Sediment 1+ /HPF (NEGATIVE) 01/10/19 17:45 Urine Bacteria Trace /HPF (NEGATIVE) 01/10/19 17:45 Urine Mucus Rare /HPF (NEGATIVE) 01/10/19 17:45 Ur Culture Indicated? Yes/culture set up 01/10/19 17:45 Influenza Type A (PCR) Negative (NEGATIVE) 01/10/19 15:00 Influenza Type B (PCR) Negative (NEGATIVE) 01/10/19 15:00 - Plan (1) SOB (shortness of breath) Status: Acute Plan: ICU,. SERIAL CE AND EKG ON ADMISSION. CHEST XRAY ON ADMISSION AND Q AM. AMLABS CBC CMP UA. BP AND LIPID CONTROL, RESUME ELIQUIS. SHEPHERD CATH WITH STRICT I & OS. SUPPLEMENTAL O2. ECHO REVIEWED WITH PT AND FAMILY, BS AND BP CONTROL (2) Atrial fibrillation Status: Acute Plan: ON DILTIAZEM AND ELIQUIS. ADD LOPRESSOR 12.5MG PO BID (3) Swelling of lower limb Status: Acute (4) Hypertension Status: Acute (5) long term care pharmacist current use of anticoagulant Status: Acute (6) Weakness Status: Acute
[2019-01-13] MEDS ORDERED: LOPRESSOR TAB 25 MG ONE (18:09)
[2019-01-13] MEDS: LOPRESSOR TAB 25 MG PO SCH ×3 (18:15→20:44)
[2019-01-13] MEDS: SNACK - Diabetic Appropriate PO SCH (20:43)
[2019-01-13] MEDS: CARDIZEM CD 180 MG PO SCH (20:43)
[2019-01-14] MEDS: MICRO K EXTEN CAP 10 MEQ PO SCH ×3 (05:21→21:51)
[2019-01-14 05:29] LABS: BASOPHILS % (AUTO) 0.4 % (0.2-1.0); EOSINOPHILS # (AUTO) 0.1 x10^3/uL (0.0-0.2); EOSINOPHILS % (AUTO) 2.1 % (0.9-2.9); HEMATOCRIT 35.2 % (36.0-47.0); HEMOGLOBIN 11.4 g/dL (12.0-16.0); LYMPHOCYTES # (AUTO) 0.9 X10^3/uL (1.3-2.9); LYMPHOCYTES % (AUTO) 14.5 % (21.0-51.0); MEAN CORPUSCULAR HEMOGLOBIN 30.5 pg (27.0-34.0); MEAN CORPUSCULAR HGB CONC 32.5 g/dL (33.0-35.0); MEAN CORPUSCULAR VOLUME 93.8 fL (80.0-100.0); MEAN PLATELET VOLUME 10.3 fL (7.4-11.0); MONOCYTES # (AUTO) 0.7 x10^3/uL (0.3-0.8); MONOCYTES % (AUTO) 10.6 % (0.0-13.0); NEUTROPHILS # (AUTO) 4.4 x10^3/uL (2.2-4.8); NEUTROPHILS % (AUTO) 72.4 % (42.0-75.0); PLATELET COUNT 243 X10^3/uL (150.0-450.0); RED BLOOD COUNT 3.75 X10^6/uL (3.5-5.4); RED CELL DISTRIBUTION WIDTH 14.8 % (11.6-16.5); WHITE BLOOD COUNT 6.2 X10^3/uL (3.6-10.0)
[2019-01-14 05:39] LABS: ALANINE AMINOTRANSFERASE 19 Units/L (12-78); ALBUMIN 3.4 g/dL (3.4-5.0); ALKALINE PHOSPHATASE 112 Units/L (46-116); ASPARTATE AMINO TRANSFERASE 16 Units/L (15-37); BLOOD UREA NITROGEN 26 mg/dL (7-18); CALCIUM 8.9 mg/dL (8.5-10.1); CARBON DIOXIDE 32.4 mmol/L (21-32); CHLORIDE 104 mmol/L (98-107); COR NA(FOR HYPERGLY) 143 mmol/L (136-145); CREATININE 1.51 mg/dL (0.55-1.02); SODIUM 140 mmol/L (136-145); TOTAL PROTEIN 7.7 g/dL (6.4-8.2); eGFR NON BLACK RACES 36 (>60)
[2019-01-14] MEDS ORDERED: MAGNESIUM SULFATE 1 GRAM/100 mL PREMIX 2 G/200 ML BAG IV ONE (07:34)
[2019-01-14] MEDS: LASIX IVP SCH ×2 (08:33→20:30)
[2019-01-14] MEDS: PEPCID TAB 20 MG PO SCH ×2 (08:34→20:34)
[2019-01-14] MEDS: LOPRESSOR TAB 25 MG PO SCH ×2 (08:34→20:30)
[2019-01-14] MEDS: ELIQUIS PO SCH ×2 (08:34→20:30)
[2019-01-14] MEDS: MAGNESIUM SULFATE 1 GRAM/100 mL PREMIX 1 G/100 ML BAG IV PRN ×2 (08:36→11:03)
[2019-01-14] MEDS: ZANAFLEX PO PRN ×2 (08:45→20:30)
[2019-01-14 09:23] LABS: ABG BASE EXCESS 5.3 mmol/L (-2.0-2.0)
[2019-01-14 09:24] LABS: ABG ALLEN TEST POS
--- NOTE | 2019-01-14 13:44 | PCM.PROG ---
Progress Note - Progress Note for Day of Date of Exam: 01/14/19 - Subjective Subjective: 73 WF DIRECT ADMIT ON 01/10 WITH DIFFUSE ANASARCA, LOWER EXTREMITY EDEMA, SOB AND AFIB WITH HYPERTENSIVE URGENCY. PT HAS PMH OF AFIB AND DENIES ANY KNOWN CHF OR CAD. PT DENIES ANY CHEST PAIN, CONTINUES WITH DIFFUSE EDEMA AND SOB WORSE ON EXERTION OR SPEAKING.PT CURRENTLY ON IV LASIX WITH STRICT I & OS, SHEPHERD CATH CARE. PT HAS HAD SERIAL CE WITH EKGS. RECEIVED DIGOXIN IV, CONTINUOUS CARDIAC AND BP MONITORING. ADDED LOPRESSOR 12.5 BID BP 143/86, PULSE 80'S. DISCUSSED FUTURE HEART CATH WITH PT AND FAMILY. PT CO RIGHT THIGH AND LOWER BACK PAIN, EASED WITH PO TIZANIDINE. BUN 26, CREAT 1.51. PLAN TO REPEAT CXR THIS AM. - Past Medical Family Social History Past Med/Fam/Surg Hx: No changes since H&P Allergies: Allergies No Known Drug Allergies Allergy (Verified 01/10/19 13:28) - Review of Systems ROS: No change since H&P - Vital Signs and I&O's Vital Signs: Temperature 98.0 F Pulse Rate 90 Respiratory Rate 20 Blood Pressure 143/86 O2 Sat by Pulse Oximetry 96 Intake and Output: Intake & Output 01/12/19 01/13/19 01/14/19 01/15/19 11:59 11:59 11:59 11:59 Intake Total 560 / 560 1320 / 1320 1160 / 1160 Output Total 2400 / 2400 2201 / 2201 1651 / 1651 Balance -1840 / -1840 -881 / -881 -491 / -491 - Physical Exam Oriented: Normal Eyes: Normal Nose: Normal Throat: Normal Respiratory: Diminished Cardiovascular: Tachycardia, Irregular, Edema Auscultation: Bowel Sounds: Normal Tenderness: Normal Skin: Red, Tender, Hot (BILATERAL LOWER EXTREMITIES) Musculoskeletal: Right, Left, Leg, Back:Lumbar Psychiatric: Anxiety Affect: Anxious Speech Pattern: Clear, Appropriate - Laboratory and Diagnostics Result Diagrams: 01/14/19 04:12 01/14/19 04:12 Labs: 01/10/19 17:45 Urine,Catheterized Urine Culture - Final Laboratory WBC 6.2 X10^3/uL (3.6-10.0) 01/14/19 04:12 RBC 3.75 X10^6/uL (3.5-5.4) 01/14/19 04:12 Hgb 11.4 g/dL (12.0-16.0) L 01/14/19 04:12 Hct 35.2 % (36.0-47.0) L 01/14/19 04:12 MCV 93.8 fL (80.0-100.0) 01/14/19 04:12 MCH 30.5 pg (27.0-34.0) 01/14/19 04:12 MCHC 32.5 g/dL (33.0-35.0) L 01/14/19 04:12 RDW 14.8 % (11.6-16.5) 01/14/19 04:12 Plt Count 243 X10^3/uL (150.0-450.0) 01/14/19 04:12 MPV 10.3 fL (7.4-11.0) 01/14/19 04:12 Neut % (Auto) 72.4 % (42.0-75.0) 01/14/19 04:12 Lymph % (Auto) 14.5 % (21.0-51.0) L 01/14/19 04:12 [place] % (Auto) 10.6 % (0.0-13.0) 01/14/19 04:12 Eos % (Auto) 2.1 % (0.9-2.9) 01/14/19 04:12 Baso % (Auto) 0.4 % (0.2-1.0) 01/14/19 04:12 Neut # (Auto) 4.4 x10^3/uL (2.2-4.8) 01/14/19 04:12 Lymph # (Auto) 0.9 X10^3/uL (1.3-2.9) L 01/14/19 04:12 Maury # (Auto) 0.7 x10^3/uL (0.3-0.8) 01/14/19 04:12 Eos # (Auto) 0.1 x10^3/uL (0.0-0.2) 01/14/19 04:12 Baso # (Auto) 0.0 X10^3/uL (0.0-0.1) 01/14/19 04:12 Absolute Nucleated RBC 0.0 /100WBC 01/14/19 04:12 INR Target Range - 01/13/19 05:57 INR 1.55 (0.8-1.3) H 01/13/19 05:57 APTT 41.3 SECONDS (22.9-36.5) H 01/13/19 05:57 PTT Comment - 01/13/19 05:57 Sample Site Lr 01/14/19 09:15 ABG pH 7.430 (7.35-7.45) 01/14/19 09:15 ABG pCO2 46.0 mmHg (35.0-45.0) H 01/14/19 09:15 ABG pO2 75.0 mmHg (80.0-100.0) L 01/14/19 09:15 ABG HCO3 30.5 mmol/L (22-26) H* 01/14/19 09:15 ABG O2 Saturation 95.0 % (90-100) 01/14/19 09:15 ABG Base Excess 5.3 mmol/L (-2.0-2.0) H 01/14/19 09:15 Heladio Test Pos 01/14/19 09:15 A-a Gradient 17.0 mmHg 01/14/19 09:15 FiO2 21.0 01/14/19 09:15 Blood Gas Comments Pt carmen well. cdn 01/14/19 09:15 Sodium 140 mmol/L (136-145) 01/14/19 04:12 Corrected Sodium 143 mmol/L (136-145) 01/14/19 04:12 Potassium 4.5 mmol/L (3.5-5.1) 01/14/19 04:12 Chloride 104 mmol/L (98-107) 01/14/19 04:12 Carbon Dioxide 32.4 mmol/L (21-32) H 01/14/19 04:12 BUN 26 mg/dL (7-18) H 01/14/19 04:12 Creatinine 1.51 mg/dL (0.55-1.02) H 01/14/19 04:12 Est GFR (MDRD) Af Amer 43 (>60) L 01/14/19 04:12 Est GFR (MDRD) Non-Af 36 (>60) L 01/14/19 04:12 Glucose 210 mg/dL (65-99) H 01/14/19 04:12 POC Glucose (mg/dL) 195 mg/dL (65-99) H 01/14/19 11:05 Calcium 8.9 mg/dL (8.5-10.1) 01/14/19 04:12 Corrected Calcium TNP 01/14/19 04:12 Magnesium 1.7 mg/dL (1.7-2.9) 01/14/19 04:12 Total Bilirubin 0.50 mg/dL (0.2-1.0) 01/14/19 04:12 AST 16 Units/L (15-37) 01/14/19 04:12 ALT 19 Units/L (12-78) 01/14/19 04:12 Alkaline Phosphatase 112 Units/L (46-116) 01/14/19 04:12 Creatine Kinase 49 Units/L (26-192) 01/11/19 09:45 CK-MB (CK-2) 1.5 ng/mL (0-4.0) 01/11/19 09:45 CK/CKMB % Calc 3.1 % (<4) 01/11/19 09:45 Troponin I 0.18 ng/mL (0-1.5) 01/11/19 09:45 B-Natriuretic Peptide 150 pg/mL (0-79) H 01/10/19 13:24 Total Protein 7.7 g/dL (6.4-8.2) 01/14/19 04:12 Albumin 3.4 g/dL (3.4-5.0) 01/14/19 04:12 Globulin 4.3 g/dL (2.5-4.5) 01/14/19 04:12 Albumin/Globulin Ratio 0.8 Ratio (1.1-2.1) L 01/14/19 04:12 Specimen Type Catherized urine 01/10/19 17:45 Urine Color Yellow (YELLOW) 01/10/19 17:45 Urine Appearance Hazy (CLEAR) 01/10/19 17:45 Urine pH 5.0 (5.0 - 8.0) 01/10/19 17:45 Ur Specific [place] 1.015 (1.000-1.030) 01/10/19 17:45 Urine Protein 1+ (NEGATIVE) 01/10/19 17:45 Urine Glucose (UA) Negative (NEGATIVE) 01/10/19 17:45 Urine Ketones Negative (NEGATIVE) 01/10/19 17:45 Urine Occult Blood 4+ (NEGATIVE) 01/10/19 17:45 Urine Nitrite Negative (NEGATIVE) 01/10/19 17:45 Urine Bilirubin Negative (NEGATIVE) 01/10/19 17:45 Urine Urobilinogen Normal (NORMAL) 01/10/19 17:45 Ur Leukocyte Esterase 1+ (NEGATIVE) 01/10/19 17:45 Urine RBC 5-10 /HPF (NONE SEEN) 01/10/19 17:45 Urine WBC 5-10 /HPF (NONE SEEN) 01/10/19 17:45 Ur Squamous Epith Cells Moderate /HPF (NEGATIVE) 01/10/19 17:45 Amorphous Sediment 1+ /HPF (NEGATIVE) 01/10/19 17:45 Urine Bacteria Trace /HPF (NEGATIVE) 01/10/19 17:45 Urine Mucus Rare /HPF (NEGATIVE) 01/10/19 17:45 Ur Culture Indicated? Yes/culture set up 01/10/19 17:45 Stool Description 60g,brown,unformed 01/13/19 20:00 Stl Occult Blood (IFOB) Negative (NEGATIVE) 01/13/19 20:00 Influenza Type A (PCR) Negative (NEGATIVE) 01/10/19 15:00 Influenza Type B (PCR) Negative (NEGATIVE) 01/10/19 15:00 - Plan (1) SOB (shortness of breath) Status: Acute Plan: ICU,. SERIAL CE AND EKG ON ADMISSION. CHEST XRAY ON ADMISSION AND Q AM. AMLABS CBC CMP UA. BP AND LIPID CONTROL, RESUME ELIQUIS. SHEPHERD CATH WITH STRICT I & OS. SUPPLEMENTAL O2. ECHO REVIEWED WITH PT AND FAMILY, BS AND BP CONTROL (2) Atrial fibrillation Status: Acute Plan: ON DILTIAZEM AND ELIQUIS. ADD LOPRESSOR 12.5MG PO BID (3) Swelling of lower limb Status: Acute (4) Hypertension Status: Acute (5) [facility] current use of anticoagulant Status: Acute (6) Weakness Status: Acute (7) Aortic valve disease Status: Acute Plan: BP CONTROL, CARIDAC MONITORING
--- NOTE | 2019-01-14 14:38 | RAD ---
HISTORY: Short of breath CHF Study: AP portable chest Comparison: One-view chest 01/12/2019 Technique: AP portable upright chest. Findings: EKG leads overlie the thorax. The heart size and configuration are normal airway is normal vascularity is normal no interstitial or alveolar edema is seen. There is hazy density over both lower lung capps but it is probably due to breast attenuation especially on the left. No definite effusions or infiltrates are observed. IMPRESSION: 1. Hazy densities specially in the left lung base is probably due to breast attenuation and the chest is otherwise unchanged from prior chest film 01/12/2019. Reported By:
[2019-01-14] MEDS: XANAX PO PRN (18:22)
[2019-01-14] MEDS: SNACK - Diabetic Appropriate PO SCH (20:18)
[2019-01-14] MEDS: CARDIZEM CD 180 MG PO SCH (20:30)
[2019-01-15] MEDS: MICRO K EXTEN CAP 10 MEQ PO SCH ×2 (05:35→13:51)
[2019-01-15 05:37] LABS: BASOPHILS % (AUTO) 0.4 % (0.2-1.0); EOSINOPHILS # (AUTO) 0.1 x10^3/uL (0.0-0.2); EOSINOPHILS % (AUTO) 2.3 % (0.9-2.9); HEMATOCRIT 34.2 % (36.0-47.0); HEMOGLOBIN 11.2 g/dL (12.0-16.0); LYMPHOCYTES # (AUTO) 0.9 X10^3/uL (1.3-2.9); LYMPHOCYTES % (AUTO) 13.1 % (21.0-51.0); MEAN CORPUSCULAR HEMOGLOBIN 30.7 pg (27.0-34.0); MEAN CORPUSCULAR HGB CONC 32.8 g/dL (33.0-35.0); MEAN CORPUSCULAR VOLUME 93.6 fL (80.0-100.0); MEAN PLATELET VOLUME 10.6 fL (7.4-11.0); MONOCYTES # (AUTO) 0.7 x10^3/uL (0.3-0.8); NEUTROPHILS # (AUTO) 4.8 x10^3/uL (2.2-4.8); NEUTROPHILS % (AUTO) 73.2 % (42.0-75.0); PLATELET COUNT 240 X10^3/uL (150.0-450.0); RED BLOOD COUNT 3.65 X10^6/uL (3.5-5.4); RED CELL DISTRIBUTION WIDTH 14.6 % (11.6-16.5); WHITE BLOOD COUNT 6.5 X10^3/uL (3.6-10.0)
[2019-01-15 05:44] LABS: ALBUMIN 3.2 g/dL (3.4-5.0); CALCIUM 8.8 mg/dL (8.5-10.1); CARBON DIOXIDE 30.4 mmol/L (21-32); COR CA(FOR HYPOALB) 9.4 mg/dL (8.5-10.1); CREATININE 1.33 mg/dL (0.55-1.02); TOTAL PROTEIN 7.3 g/dL (6.4-8.2)
[2019-01-15] MEDS ORDERED: BENADRYL INJ 50 MG VIAL IVP ONE (08:08)
[2019-01-15] MEDS: ELIQUIS PO SCH (08:51)
[2019-01-15] MEDS: LASIX IVP SCH (08:56)
[2019-01-15] MEDS: LOPRESSOR TAB 25 MG PO SCH (08:56)
[2019-01-15] MEDS: PEPCID TAB 20 MG PO SCH (08:56)
[2019-01-15] MEDS: XANAX PO PRN (09:29)
[2019-01-15] MEDS: ZANAFLEX PO PRN (09:29)
[2019-01-15 12:46] LABS: ABG HCO3 30.5 mmol/L (22-26)
[2019-01-15 17:17] VITALS: BP 165/91
[2019-01-15] MEDS ORDERED: BENADRYL INJ 50 MG VIAL ONE (17:40)
== END 2019-01-15 18:00 | disposition short-term general hospital (02) | DRG 293 ==
LOC: ICU → EDACCT#
PROVIDERS: ADMIT Internal Medicine; ATTEND Internal Medicine
DX: E11.65 Type 2 diabetes mellitus with hyperglycemia; I87.2 Venous insufficiency (chronic) (peripheral); I50.89 Other heart failure; R26.89 Other abnormalities of gait and mobility; I48.91 Unspecified atrial fibrillation; E66.8 Other obesity; I16.0 Hypertensive urgency; I11.0 Hypertensive heart disease with heart failure; R60.1 Generalized edema; R53.1 Weakness; R06.02 Shortness of breath; Z79.01 Long term (current) use of anticoagulants; R79.1 Abnormal coagulation profile
CPT/HCPCS: 36415; 36556; 36600; 71010; 71045; 80053; 81001; 82270; 82550; 82553; 82803; 83735; 83880; 84484; 85025; 85610; 85730; 87086; 87502; 93005; 93306; 93970; 97110; 97162; 97167; 97530; 97535; A4222; G0378; J1160; J1200; J1940; J3475